=== PATIENT | female | born 1975 | race Caucasian/White ===

== ENCOUNTER 2016-12-26 22:20 | Emergency (ER) | payer OTHER ==
[~2016-12-26] VITALS: Ht 154.9 cm; Wt 65.0 kg
[~2016-12-26 22:20] MED LIST: CLON1TAB PO; LAMO25 PO; LITH300C2 PO; PRAZ2CAP PO; PROT40TA PO
[2016-12-26 22:29] VITALS: BP 133/83; PULSE 80; RESP 17; TEMP 97.9; O2SAT 97
[2016-12-26] MEDS ORDERED: GABA600T PO (22:31)
[2016-12-26 22:54] LABS: AUTOMATED NEUTROPHIL # 5.6 TH/MM3 (1.8-7.7); BASOPHIL % 0.3 % (0.0-2.0); EOSINOPHIL # 0.2 TH/MM3 (0-0.4); EOSINOPHIL % 1.5 % (0.0-4.0); HEMATOCRIT 43.6 % (35.0-46.0); HEMO FLAGS DIFF FINAL; LYMPH % 41.1 % (9.0-44.0); LYMPHOCYTE # 4.5 TH/MM3 (1.0-4.8); MEAN CELL VOLUME 83.3 FL (80.0-100.0); MEAN CORPUSCULAR HEMOGLOBIN 28.1 PG (27.0-34.0); MEAN CORPUSCULAR HGB CONC 33.7 % (32.0-36.0); NEUT % 51.1 % (16.0-70.0); PLATELET COUNT 239 TH/MM3 (150-450); RED BLOOD COUNT 5.23 MIL/MM3 (4.00-5.30); RED CELL DISTRIBUTION WIDTH 14.1 % (11.6-17.2); WHITE BLOOD COUNT 10.9 TH/MM3 (4.0-11.0)
[2016-12-26 23:04] LABS: AMPHETAMINE, URINE NEG (NEG); BARBITURATES, URINE NEG (NEG); COCAINE, URINE NEG (NEG)
[2016-12-26 23:12] LABS: ALT (GPT) 111 U/L (10-53); ANION GAP 6 MEQ/L (5-15); AST (GOT) 67 U/L (15-37); BICARBONATE 29.1 MEQ/L (21.0-32.0); BLOOD UREA NITROGEN 10 MG/DL (7-18); CHLORIDE 106 MEQ/L (98-107); GLOMERULAR FILTRATION RATE 96 ML/MIN (>89); POTASSIUM 4.2 MEQ/L (3.5-5.1); SODIUM (NA) 141 MEQ/L (136-145)
[2016-12-26 23:15] LABS: ALKALINE PHOSPHATASE 70 U/L (45-117); TOTAL BILIRUBIN ADULT 0.4 MG/DL (0.2-1.0)
[2016-12-26 23:23] LABS: ACETAMINOPHEN LESS THAN 2.0 MCG/ML (10.0-30.0)
[2016-12-27] MEDS ORDERED: traMADol HCL 50 MG TAB PO ONE (00:15)
[2016-12-27] MEDS ORDERED: PROMETHAZINE HCL 25 MG TAB PO ONE (00:15)
--- NOTE | 2016-12-27 00:18 | PD ---
HPI Chief Complaint: Psychiatric Symptoms Time Seen by Provider: 00:08 Travel History International Travel<30 days: No Contact w/Intl Traveler<30days: No Traveled to known affect area: No History of Present Illness HPI 41-year-old female here under Butterfield act for suicidal ideation. The patient has history of PTSD, bipolar disorder, anxiety, is on Klonopin, Protonix, gabapentin , and tramadol. She is from [place] and moved here 4 months ago. She has a prescription for medical marijuana which she also uses. No other illicit drug use. She states that she was taken off of her lithium one month ago by [facility] after being on it for 12 years. Chart review shows that the patient was seen in August for a verapamil overdose after being screened by psychiatry 2 days prior. According to the Butterfield act the patient advises that she would take pills or cut herself and that she wants to . Reports that she has been cutting her legs, but no recent self-harm. No fevers or chills. She is having a migraine headache and has history of migraine headaches and is requesting tramadol and Phenergan. 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 ) Allergies-Medications (Allergen,Severity, Reaction): Coded Allergies: Keflex (Verified Allergy, Unknown, 12/26/16) Penicillin (Verified Allergy, Unknown, 12/26/16) Reported Meds & Prescriptions Reported Meds & Active Scripts Active Reported Gabapentin 600 Mg Tab 600 Mg PO QID Protonix (Pantoprazole Sodium) 40 Mg Tab 40 Mg PO DAILY Prazosin (Prazosin HCl) 2 Mg Cap 2 Mg PO DAILY Clonazepam 1 Mg Tab 1 Mg PO TID Review of Systems Except as stated in HPI: all other systems reviewed are Neg Physical Exam Narrative GENERAL: Well-developed, well-nourished, awake, alert, no acute distress. SKIN: Warm and dry. No rash. Well-healed scars on bilateral anterior thighs without warmth or erythema. HEAD: Atraumatic. Normocephalic. EYES: Pupils equal and round. No scleral icterus. No injection or drainage. ENT: No nasal bleeding or discharge. Mucous membranes pink and moist. NECK: Trachea midline. No JVD. No nuchal rigidity. CARDIOVASCULAR: Regular rate and rhythm. No murmur appreciated. RESPIRATORY: No accessory muscle use. Clear to auscultation. Breath sounds equal bilaterally. GASTROINTESTINAL: Abdomen soft, non-tender, nondistended. MUSCULOSKELETAL: No obvious deformities. No clubbing. No cyanosis. No edema. NEUROLOGICAL: Awake and alert. No obvious cranial nerve deficits. Motor grossly within normal limits. Normal speech. PSYCHIATRIC: Appropriate mood and affect; insight and judgment normal. Data Data Last Documented VS Vital Signs Date Time Temp Pulse Resp B/P Pulse Ox O2 Delivery O2 Flow Rate FiO2 12/26/16 22:29 97.9 80 17 133/83 97 Orders Complete Blood Count With Diff (12/26/16 22:24) Comprehensive Metabolic Panel (12/26/16 22:24) Drug Screen, Random Urine (12/26/16 22:24) Alcohol (Ethanol) (12/26/16 22:24) Tylenol (Acetaminophen) (12/26/16 22:24) Salicylates (Aspirin) (12/26/16 22:24) Psych Screen (12/26/16 22:24) Tramadol (Ultram) (12/27/16 00:15) Promethazine (Phenergan) (12/27/16 00:15) Labs Laboratory Tests Test 12/26/16 22:25 White Blood Count 10.9 TH/MM3 Red Blood Count 5.23 MIL/MM3 Hemoglobin 14.7 GM/DL Hematocrit 43.6 % Mean Corpuscular Volume 83.3 FL Mean Corpuscular Hemoglobin 28.1 PG Mean Corpuscular Hemoglobin 33.7 % Concent Red Cell Distribution Width 14.1 % Platelet Count 239 TH/MM3 Mean Platelet Volume 8.3 FL Neutrophils (%) (Auto) 51.1 % Lymphocytes (%) (Auto) 41.1 % Monocytes (%) (Auto) 6.0 % Eosinophils (%) (Auto) 1.5 % Basophils (%) (Auto) 0.3 % Neutrophils # (Auto) 5.6 TH/MM3 Lymphocytes # (Auto) 4.5 TH/MM3 Monocytes # (Auto) 0.7 TH/MM3 Eosinophils # (Auto) 0.2 TH/MM3 Basophils # (Auto) 0.0 TH/MM3 CBC Comment DIFF FINAL Differential Comment Sodium Level 141 MEQ/L Potassium Level 4.2 MEQ/L Chloride Level 106 MEQ/L Carbon Dioxide Level 29.1 MEQ/L Anion Gap 6 MEQ/L Blood Urea Nitrogen 10 MG/DL Creatinine 0.68 MG/DL Estimat Glomerular Filtration 96 ML/MIN Rate Random Glucose 89 MG/DL Calcium Level 9.1 MG/DL Total Bilirubin 0.4 MG/DL Aspartate Amino Transf 67 U/L (AST/SGOT) Alanine Aminotransferase 111 U/L (ALT/SGPT) Alkaline Phosphatase 70 U/L Total Protein 8.2 GM/DL Albumin 4.0 GM/DL Urine Opiates Screen NEG Acetaminophen Level LESS THAN 2.0 MCG/ML Urine Barbiturates Screen NEG Urine Amphetamines Screen NEG Urine Benzodiazepines Screen NEG Urine Cocaine Screen NEG Urine Cannabinoids Screen POS Ethyl Alcohol Level LESS THAN 3 MG/DL MDM Medical Decision Making Medical Screen Exam Complete: Yes Emergency Medical Condition: Yes Medical Record Reviewed: Yes Differential Diagnosis Suicidal ideation, depression, bipolar disorder Narrative Course Vital signs are within normal limits. CBC is unremarkable. CMP shows slightly elevated LFTs with an AST of 67, ALT 111, otherwise unremarkable. Urine drug screen is positive for cannabinoids, negative for all other drugs tested. Tylenol and alcohol levels are negative. The patient is overall very well-appearing and is pleasant and is here seeking help for suicidal ideation. She is complaining of a migraine headache and states that her headache is typical for her usual migraines. She is requesting tramadol and Phenergan which I will provide for her. She is afebrile and there is no nuchal rigidity. I do not believe she has meningitis or encephalitis based on physical exam. She is medically cleared for psychiatric evaluation and disposition by them. Diagnosis Primary Impression: Suicidal ideation Jose Olivarez MD Dec 27, 2016 00:18
[2016-12-27 02:00] VITALS: BP 102/77; PULSE 69; RESP 18; O2SAT 98
[2016-12-27 06:09] VITALS: BP 96/56; PULSE 74; RESP 18; O2SAT 99
[2016-12-27] MEDS ORDERED: clonazePAM 0.5 MG TAB PO ONE (13:30)
[2016-12-27 13:38] VITALS: BP 95/56; PULSE 74; RESP 18; O2SAT 99
--- NOTE | 2016-12-27 15:44 | PD ---
History of Present Illness Chief Complaint: Psychiatric Symptoms Time Seen by Provider: 12:15 Travel History International Travel<30 Days: No Contact w/Intl Traveler<30days: No Known affected area: No Legal Status Legal Status: Butterfield Act Butterfield Act Signed By: Joey Lockwood Butterfield Act Comment: @ [phone] History of Present Illness: History of Present Illness HPI 41-year-old female with history of Bipolar disorder here under Butterfield act initiated by [place]. As per the report the patient called the police and reported that she has been off her medication and she wants to . She also advised them that she would take pills or cut herself. Patient is known to [facility] as she has been evaluated on Sep 05, 2016, she had an intentional overdose on Sep 07, 2016 and was BA on Sep 14, 2016. This visit the patient reports tome that she has been off her Klonopin and that she came to the hospital in order to get this medication. She states " I am not suicidal and I am not homicidal . A;ll I want is to get my medication. She informs that she went to [facility] but that she was told she was not able to be followed there because she was seeing a private psychiatrist by the name of Dr. Perez who was prescribing her Klonopin. I attempted to contact this prescriber but was unable to do so. She tells me he practices in [place] and has an office here. She then goes on to tell me that she has not been able to get an appointment because she cannot afford the co pay. Staff has checked the pharmacy and she received #24 of Klonopin on the 3rd of this month. When I ask her to clarify this she then reports that she was at another hospital and got that prescription but has since run out. I inform her that we would not be able to provide her with a prescription for Klonopin and she then request to be discharged and states " It's Pardo's day and I want to be home with my boyfriend". She has an appointment with Dr. Perez on January 14, 2016. 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 States that she has been "clean" almost 21 mons. 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 She maintains that she has a "medical marijuanna" card in [place] and so will be positive for it. "I believe I am depressed." History of Inpatient Treatment: Yes Guns or firearms in home: No Social History Single female who lives with her boyfriend. Unemployed. Hx Alcohol Use: No Hx Tobacco Use: No Hx Substance Use: No Substance Use Type: Marijuana Hx of Substance Use Treatment: Yes Family Psychiatric History None reported Allergies-Medications (Allergen,Severity, Reaction): Coded Allergies: Keflex (Verified Allergy, Unknown, 12/26/16) Penicillin (Verified Allergy, Unknown, 12/26/16) Reported Meds & Prescriptions Reported Meds & Active Scripts Active Reported Gabapentin 600 Mg Tab 600 Mg PO QID Protonix (Pantoprazole Sodium) 40 Mg Tab 40 Mg PO DAILY Prazosin (Prazosin HCl) 2 Mg Cap 2 Mg PO DAILY Clonazepam 1 Mg Tab 1 Mg PO TID Review of Systems Except as stated in HPI: all other systems reviewed are Neg Psychiatric: COMPLAINS OF: Anxiety Exam Alert: Yes Melvin: Person (ox4) Mood: Anxious Affect: Euthymic Speech: Clear, Logical Eye Contact: Normal Memory Intact: Comment (no impairemetn) Hallucinations: Other (negative) Delusions: No Suicidal: Ideation (denies any) Homicidal: Ideation (denies any) Insight/Judgement Fair,. Not impaired. MDM Medical Decision Making Medical Record Reviewed: Yes Assessment/Plan 41 year old female with hx of bipolar disorder who presented under a BA for reported thoughts of wanting to . It appears patient has run out of her prescribed benzodiazepine medication. She is denying suicidal or homicidal ideation and is requesting a refill on this medication. She has gone to another [facility] 8 days ago and received a week supply of this medicine. I have explained to her that we cannot refill medication for her at this time and that she needs to contact the prescriber , Dr. Perez. Patient recanted her suicidal ideation at this time and requested discharge in order to spend this Pardo's day with her boyfriend. The BA will be lifted . Orders Complete Blood Count With Diff (12/26/16 22:24) Comprehensive Metabolic Panel (12/26/16 22:24) Drug Screen, Random Urine (12/26/16 22:24) Alcohol (Ethanol) (12/26/16 22:24) Tylenol (Acetaminophen) (12/26/16 22:24) Salicylates (Aspirin) (12/26/16 22:24) Psych Screen (12/26/16 22:24) Tramadol (Ultram) (12/27/16 00:15) Promethazine (Phenergan) (12/27/16 00:15) Diet Regular Basic (12/27/16 Breakfast) Diet Regular Basic (12/27/16 Lunch) Clonazepam (Klonopin) (12/27/16 13:30) Results Vital Signs Date Time Temp Pulse Resp B/P Pulse Ox O2 Delivery O2 Flow Rate FiO2 12/27/16 13:38 74 18 95/56 99 Room Air 12/27/16 06:09 74 18 96/56 99 Room Air 12/27/16 02:00 69 18 102/77 98 Room Air 12/27/16 01:55 20 12/26/16 22:29 97.9 80 17 133/83 97 Laboratory Tests Test 12/26/16 12/27/16 22:25 04:35 White Blood Count 10.9 Red Blood Count 5.23 Hemoglobin 14.7 Hematocrit 43.6 Mean Corpuscular Volume 83.3 Mean Corpuscular Hemoglobin 28.1 Mean Corpuscular Hemoglobin 33.7 Concent Red Cell Distribution Width 14.1 Platelet Count 239 Mean Platelet Volume 8.3 Neutrophils (%) (Auto) 51.1 Lymphocytes (%) (Auto) 41.1 Monocytes (%) (Auto) 6.0 Eosinophils (%) (Auto) 1.5 Basophils (%) (Auto) 0.3 Neutrophils # (Auto) 5.6 Lymphocytes # (Auto) 4.5 Monocytes # (Auto) 0.7 Eosinophils # (Auto) 0.2 Basophils # (Auto) 0.0 CBC Comment DIFF FINAL Differential Comment Sodium Level 141 Potassium Level 4.2 Chloride Level 106 Carbon Dioxide Level 29.1 Anion Gap 6 Blood Urea Nitrogen 10 Creatinine 0.68 Estimat Glomerular Filtration 96 Rate Random Glucose 89 Calcium Level 9.1 Total Bilirubin 0.4 Aspartate Amino Transf 67 (AST/SGOT) Alanine Aminotransferase 111 (ALT/SGPT) Alkaline Phosphatase 70 Total Protein 8.2 Albumin 4.0 Urine Opiates Screen NEG Acetaminophen Level LESS THAN 2.0 Urine Barbiturates Screen NEG Urine Amphetamines Screen NEG Urine Benzodiazepines Screen NEG Urine Cocaine Screen NEG Urine Cannabinoids Screen POS Ethyl Alcohol Level LESS THAN 3 Salicylates Level 1.7 Diagnosis Primary Impression: Bipolar disorder, in partial remission, most recent episode depressed Psychiatrically Cleared: Yes Referrals: [facility] (Out patient) as needed [facility] needed Mental Health and Substance Abuse Departure Forms: Tests/Procedures Patient Instructions: General Instructions, Suicide Prevention for Adults (ED) Additional Instructions: DX: Suicidal Ideation Please return to ED if symptoms worsen. Med/ Other Pt Specific Info: No Change to Meds Disposition: 01 DISCHARGE HOME Condition: Stable Marylu Alcala Dec 27, 2016 15:44
[2017-01-17] MEDS ORDERED: PROM12.54 PO (11:59)
[2017-01-17] MEDS ORDERED: GABA600T PO (11:59)
== END 2016-12-27 15:10 | disposition home or self-care (01) ==
LOC: NEPA 22:20 → NEPJ 12-27 15:10
DX: R45.851 Suicidal ideations (principal); F31.75 Bipolar disorder, in partial remission, most recent episode depressed; F41.9 Anxiety disorder, unspecified
CPT/HCPCS: 80053; 80307; 80320; 80329; 85025; 99285; Q0169; G0480